=== PATIENT | female | born 1970 | race Caucasian/White ===

== ENCOUNTER 2018-05-31 11:09 | Emergency (ER) | payer BC ==
[2018-05-31] MEDS ORDERED: Aspirin 81 MG Tab.Chew PO ONE (11:35)
[2018-05-31] MEDS ORDERED: Nitroglycerin 0.4 MG Tab.SL SL PRN (11:35)
[2018-05-31] MEDS ORDERED: Sodium Chloride 0.9% 10 ML Syringe FLUSH PRN (11:35)
--- NOTE | 2018-05-31 11:40 | EDM.PDOC ---
ED HPI GENERAL MEDICAL PROBLEM - General Chief Complaint: Chest Pain Stated Complaint: DIZZY/LT ARM TINGLING Time Seen by Provider: 05/31/18 11:30 Source of Information: Reports: Patient, Family, RN Notes Reviewed History Limitations: Reports: No Limitations - History of Present Illness INITIAL COMMENTS - FREE TEXT/NARRATIVE: 47-year-old female presents emergency department today with complaint of chest pressure, she states it started yesterday she thought it was initially heartburn today progressed now with left arm numbness she denies any nausea no diaphoresis no shortness of breath she has no personal history of coronary artery disease does not smoke does have a family history with both father and brother myocardial infarction at around 50 Chest Pain Score (Numeric/FACES): 1 - Related Data Allergies Allergy/AdvReac Type Severity Reaction Status Date / Time Penicillins Allergy Hives Verified 05/31/18 11:23 Home Meds: Home Meds L.acidoph,Paracasei, B.lactis [Probiotic] 1 each PO ASDIRECTED 03/23/18 [History ] Multivitamin [Multi-Vitamin Daily] 1 each PO 03/23/18 [History] Past Medical History HEENT History: Reports: Impaired Vision [employer]ANG[employer]AGE [employer]TER History: Reports: - Past Surgical History GI Surgical History: Reports: Appendectomy Musculoskeletal Surgical History: Reports: Ganglion Cyst, Other (See Below) Social & Family History - Tobacco Use Smoking Status *Q: Never Smoker - Caffeine Use Caffeine Use: Reports: None - Alcohol Use Days Per Week of Alcohol Use: 5 Number of Drinks Per Day: 2 Total Drinks Per Week: 10 - Recreational Drug Use Recreational Drug Use: No ED ROS GENERAL - Review of Systems Review Of Systems: See Below Constitutional: Reports: No Symptoms HEENT: Reports: No Symptoms Respiratory: Reports: No Symptoms Cardiovascular: Reports: Chest Pain, Lightheadedness. Denies: Dyspnea on Exertion GI/Abdominal: Reports: No Symptoms : Reports: No Symptoms Musculoskeletal: Reports: No Symptoms Skin: Reports: No Symptoms Neurological: Reports: Dizziness ED EXAM, GENERAL - Physical Exam Exam: See Below Free Text/Narrative:: General: Female, not in any distress, alert and oriented x3 HEENT: head is atraumatic normocephalic, eyes pupils equal round reactive to light, sclera clear no conjunctivitis appreciated. Ears tympanic membranes clear and gomez landmarks and light reflex are present bilaterally canals are clear. Nose no septal deviation, nares are clear, no blood present. Mouth mucosa is moist and pink no erythema or exudate noted in soft palate, tongue is midline uvula is midline, dentition is intact. Neck: Supple no thyromegaly no tracheal deviation. Nodes: Cervical nodes subclavicular nodes nontender no palpable lymphadenopathy noted. Lungs: clear to auscultation bilaterally with symmetrical respirations, no adventitious noise appreciated. CV: Regular rate and rhythm S1 and S2 appreciated no murmurs rubs or gallops noted. Abdomen: Soft, nontender, no palpable masses or organomegaly appreciated, no distention no guarding bowel sounds are present, . Neuro: Cranial nerves II through XII grossly intact Skin: Warm and dry, intact Extremities: No lower extremity edema appreciated, Course - Vital Signs Last Recorded V/S: Last Vital Signs Temp 96.7 F 05/31/18 11:20 Pulse 79 05/31/18 13:34 Resp 16 05/31/18 13:34 BP 149/89 H 05/31/18 13:34 Pulse Ox 95 05/31/18 13:34 - Orders/Labs/Meds Orders: Active Orders 24 hr Category Date Time Status Cardiac Monitoring [RC] .As Directed Care 05/31/18 11:36 Active EKG Documentation Completion [RC] ASDIRECTED Care 05/31/18 11:37 Active Peripheral IV Care [RC] . DIRECTED Care 05/31/18 11:37 Active Chest 1V Frontal [CR] Stat Exams 05/31/18 11:36 Taken Nitroglycerin [Nitrostat] Med 05/31/18 11:35 Active 0.4 mg SL Q5M PRN Sodium Chloride 0.9% [Saline Flush] Med 05/31/18 11:35 Active 10 ml FLUSH ASDIRECTED PRN Peripheral IV Insertion Adult [OM.PC] Stat Oth 05/31/18 11:35 Ordered Saline Lock Insert [OM.PC] Stat Oth 05/31/18 11:35 Ordered EKG 12 Lead [EK] Stat Ther 05/31/18 11:36 Ordered Medication Orders Nitroglycerin (Nitrostat) 0.4 mg SL Q5M PRN PRN Reason: Chest Pain Stop: 06/01/18 11:37 Last Admin: 05/31/18 11:52 Dose: 0.4 mg Sodium Chloride (Saline Flush) 10 ml FLUSH ASDIRECTED PRN PRN Reason: Keep Vein Open Last Admin: 05/31/18 12:52 Dose: 10 ml Labs: Laboratory Tests 05/31/18 05/31/18 05/31/18 Range/Units 11:35 11:48 11:48 WBC 5.6 (4.5-11.0) K/uL RBC 4.28 (3.30-5.50) M/uL Hgb 13.5 (12.0-15.0) g/dL Hct 40.1 (36.0-48.0) % MCV 94 (80-98) fL MCH 32 H (27-31) pg MCHC 34 (32-36) % Plt Count 214 (150-400) K/uL Neut % (Auto) 65 (36-66) % Lymph % (Auto) 22 L (24-44) % Gem % (Auto) 9 H (2-6) % Eos % (Auto) 3 (2-4) % Baso % (Auto) 1 (0-1) % PT 10.3 (9.5-12.0) sec INR 0.96 (0.80-1.20) Sodium 142 (140-148) mmol/L Potassium 4.0 (3.6-5.2) mmol/L Chloride 102 (100-108) mmol/L Carbon Dioxide 30 (21-32) mmol/L Anion Gap 9.6 (5.0-14.0) mmol/L BUN 14 (7-18) mg/dL Creatinine 0.8 (0.6-1.0) mg/dL Est Cr Clr Drug Dosing 82.72 mL/min Estimated GFR (MDRD) > 60 (>60) Glucose 103 (74-106) mg/dL Calcium 9.3 (8.5-10.1) mg/dL Total Bilirubin 0.7 (0.2-1.0) mg/dL AST 26 (15-37) U/L ALT 26 (12-78) U/L Alkaline Phosphatase 69 (46-116) U/L Troponin I < 0.017 (0.000-0.056) ng/mL Total Protein 7.6 (6.4-8.2) g/dL Albumin 4.1 (3.4-5.0) g/dL Globulin 3.5 (2.3-3.5) g/dL Albumin/Globulin Ratio 1.2 (1.2-2.2) Meds: Medications Generic Name Dose Route Start Last Admin Trade Name Freq PRN Reason Stop Dose Admin Nitroglycerin 0.4 mg 05/31/18 11:35 05/31/18 11:52 Nitrostat SL 06/01/18 11:37 0.4 mg Q5M PRN Administration Chest Pain Sodium Chloride 10 ml 05/31/18 11:35 05/31/18 12:52 Saline Flush FLUSH 10 ml ASDIRECTED PRN Administration Keep Vein Open Discontinued Medications Generic Name Dose Route Start Last Admin Trade Name Freq PRN Reason Stop Dose Admin Aspirin 324 mg 05/31/18 11:35 05/31/18 11:53 Aspirin PO 05/31/18 11:36 324 mg ONETIME ONE Administration Al Hydroxide/Mg Hydroxide 15 0 ml 05/31/18 12:42 05/31/18 12:48 ml/ Lidocaine HCl 15 ml PO 05/31/18 12:43 30 ml ONETIME ONE Administration Departure - Departure Time of Disposition: 13:48 Disposition: Home, Self-Care 01 Condition: Good Clinical Impression: Atypical chest pain Referrals: Filipe Awad MD [Primary Care Provider] - Forms: ED Department Discharge Additional Instructions: Please followup with your primary care provider in 3-5 days if not better, please call return to the emergency department with worsening of symptoms. - My Orders Last 24 Hours: My Active Orders 05/31/18 11:35 Nitroglycerin [Nitrostat] 0.4 mg SL Q5M PRN Sodium Chloride 0.9% [Saline Flush] 10 ml FLUSH ASDIRECTED PRN Peripheral IV Insertion Adult [OM.PC] Stat Saline Lock Insert [OM.PC] Stat 05/31/18 11:36 Cardiac Monitoring [RC] .As Directed Chest 1V Frontal [CR] Stat EKG 12 Lead [EK] Stat 05/31/18 11:37 EKG Documentation Completion [RC] ASDIRECTED Peripheral IV Care [RC] . DIRECTED - Assessment/Plan Last 24 Hours: My Active Orders 05/31/18 11:35 Nitroglycerin [Nitrostat] 0.4 mg SL Q5M PRN Sodium Chloride 0.9% [Saline Flush] 10 ml FLUSH ASDIRECTED PRN Peripheral IV Insertion Adult [OM.PC] Stat Saline Lock Insert [OM.PC] Stat 05/31/18 11:36 Cardiac Monitoring [RC] .As Directed Chest 1V Frontal [CR] Stat EKG 12 Lead [EK] Stat 05/31/18 11:37 EKG Documentation Completion [RC] ASDIRECTED Peripheral IV Care [RC] . DIRECTED Plan: Assessment Acuity = acute Site and laterality = atypical chest pain Etiology = unclear etiology Manifestations = none Location of injury = Home Lab values = CBC, CMP, INR, troponin all within normal limits EKG demonstrates a normal sinus rhythm with no ST depressions or elevations, chest x-ray I did review films myself I cannot appreciate any acute process, the official read from radiology is pending , heart score of 1 Plan She did receive aspirin ntg X1 did provide relief while in the emergency department she remained asymptomatic, she is to follow-up with her primary care the next 3-5 days for reevaluation This note was dictated using [employer] voice recognition software please call with any questions on syntax or grammar.
[2018-05-31] MEDS ORDERED: Alum Hydrox/Mag Hydrox/Simeth 15 ML, Lidocaine 2% 15 ML PO ONE ×2 (12:42)
--- NOTE | 2018-06-02 10:33 | CR ---
Chest 1V Frontal INDICATION: Chest Pain COMPARISON: None FINDINGS: AP portable chest. Heart size normal. Probable calcified granuloma left lung base or nipple shadow. Remainder of the shashi gs clear. No pleural effusion or signs of pulmonary edema. IMPRESSION: 1. Nothing acute 2. Calcified granuloma versus nipple shadow left lung base. RECOMMENDATION: Repeat PA view with nipple markers. If not nipple, recommend comparison with prior ou tside exams. If none, recommend CT chest without IV contrast to confirm.
== END 2018-05-31 14:04 | disposition home or self-care (01) ==
LOC: JP.ED 11:09
DX: R07.89 Other chest pain (principal); Z88.0 Allergy status to penicillin
CPT/HCPCS: 36415; 71045; 80053; 84484; 85025; 85610; 93005; 99285; A9270; J7050